=== PATIENT | male | born 1945 | race Caucasian/White ===

== ENCOUNTER 2017-08-05 23:53 | Inpatient (IN) | payer OTHER, BC ==
[~2017-08-05] VITALS: Ht 172.7 cm; Wt 63.3 kg
[~2017-08-05 23:53] MED LIST: AGRYLIN0.5 MG PO; ASPIR 8181 M1 PO; AVELOX400 MG PO; BIOTIN1000 MICRO PO; DECADRON4 MG PO; DEXAMETHASONE4 MG PO; FINASTERIDE5 MG PO; FOLIC ACID0.8 MG PO; HYDREA500 MG PO; METOPROLOL SUCC25 MG PO; NORVASC5 MG PO; OPDIVO100 MG/10 IV; PREDNISONE5 MG PO; PREVACID30 MG PO; TAMSULOSIN HCL0.4 MG PO; VITAMIN B-12500 MC5 SL; VITAMIN B-650 M1 PO
[2017-08-06 01:28] LABS: HEMOGLOBIN 13.1 G/DL (12.5-16.6); MCH 36.3 PG (29.0-34.0); MCHC 33.6 G/DL (30.0-36.0); PLATELET COUNT 396 K/uL (156-360); RBC DIS.WIDTH-CV 16.3 % (11.8-14.6); RBC DIS.WIDTH-SD 65.9 % (39-53); RED BLOOD COUNT 3.61 M/uL (4.00-5.50)
[2017-08-06 01:37] LABS: CHLORIDE 99 mEq/L (99-109); POTASSIUM 4.6 mEq/L (3.7-5.4); SODIUM 135 mEq/L (136-147)
[2017-08-06 01:39] LABS: GLUCOSE 111 mg/dL (70-99)
[2017-08-06 01:42] LABS: CREATININE 1.2 mg/dL (0.6-1.3); GFR ESTIMATE (CALCULATED) > 59 mL/min/ (58.99-99999)
[2017-08-06 01:43] LABS: UREA NITROGEN (BUN) 27 mg/dL (9-23)
[2017-08-06 06:44] VITALS: BP 123/76
[2017-08-06 07:05] LABS: TOTAL BILIRUBIN 0.3 mg/dL (0.0-1.0)
[2017-08-06 07:32] VITALS: BP 120/67
[2017-08-06 07:51] LABS: ALBUMIN 3.9 G/DL (3.2-4.8); ALKALINE PHOSPHATASE 90 IU/L (3-129); ALT (GPT) 21 IU/L (3-49); AST (GOT) 35 IU/L (2-34); DIRECT BILIRUBIN 0.1 mg/dL (0.0-0.3); TOTAL PROTEIN 6.8 G/DL (6.4-8.3)
[2017-08-06 08:51] LABS: THYROTROPIN (TSH) 0.89 MIU/L (0.4-5.5)
[2017-08-06 09:49] LABS: APPEARANCE CLEAR ((CLEAR)); BILIRUBIN NEGATIVE; BLOOD MODERATE; COLOR YELLOW ((YELLOW)); GLUCOSE (STRIP) NEGATIVE; KETONES NEGATIVE; LEUKOCYTES NEGATIVE; NITRITE NEGATIVE; PROTEIN (STRIP) NEGATIVE; SPECIFIC GRAVITY 1.019 (1.000-1.030); UROBILINOGEN 0.2 MG/DL (0.2-1.0)
[2017-08-06 09:55] LABS: BACTERIA NONE SEEN /HPF; EPITHELIAL CELLS NONE SEEN /HPF; HYALINE CASTS 0-5 /LPF; MUCUS TRACE /LPF; RED BLOOD CELLS 0-5 /HPF (0-5); WHITE BLOOD CELLS 0-5 /HPF (0-5)
[2017-08-06] MEDS ORDERED: BACTRIM,SEPT1 TABLET PO (10:32)
[2017-08-06] MEDS ORDERED: ERGOCALCIF50000 UNIT PO (10:33)
[2017-08-06 11:40] VITALS: BP 113/67
[2017-08-06 15:22] VITALS: BP 129/77
[2017-08-06 20:59] VITALS: BP 121/74
[2017-08-07] VITALS (7 sets, daily range): BP systolic 116–132; BP diastolic 56–76
[2017-08-07 05:23] LABS: HEMATOCRIT 31.9 % (38.0-50.0); MCH 36.8 PG (29.0-34.0); MCHC 33.2 G/DL (30.0-36.0); MCV 110.8 FL (86-99); PLATELET COUNT 336 K/uL (156-360); RBC DIS.WIDTH-CV 16.5 % (11.8-14.6); RBC DIS.WIDTH-SD 68.1 % (39-53); WHITE BLOOD COUNT 11.6 K/uL (4.1-10.2)
[2017-08-07 05:24] LABS: HEMOGLOBIN 10.6 G/DL (12.5-16.6); RED BLOOD COUNT 2.88 M/uL (4.00-5.50)
[2017-08-07 05:39] LABS: CHLORIDE 106 MEQ/L (99-109); CREATININE 0.9 MG/DL (0.6-1.3); GFR ESTIMATE (CALCULATED) > 59 mL/min/ (58.99-99999); GLUCOSE 109 mg/dL (70-99); POTASSIUM 4.5 MEQ/L (3.7-5.4); SODIUM 137 MEQ/L (136-147); UREA NITROGEN (BUN) 13 mg/dL (9-23)
[2017-08-08 04:29] VITALS: BP 126/78
[2017-08-08 07:25] VITALS: BP 121/71
[2017-08-08 09:31] LABS: HEMATOCRIT 33.2 % (38.0-50.0); HEMOGLOBIN 10.8 G/DL (12.5-16.6); MCHC 32.5 G/DL (30.0-36.0); MCV 110.7 FL (86-99); PLATELET COUNT 359 K/uL (156-360); RBC DIS.WIDTH-CV 16.1 % (11.8-14.6); RBC DIS.WIDTH-SD 67.3 % (39-53); WHITE BLOOD COUNT 10.6 K/uL (4.1-10.2)
[2017-08-08 11:34] VITALS: BP 108/64
== END 2017-08-08 12:18 | disposition home or self-care (01) | DRG 312 ==
LOC: EME → EDBD 23:53 → EDOF 08-06 04:51 → 3EAST 08-06 04:51 → ENRESERV 08-06 04:57 → 3EAST 08-06 05:49
PROVIDERS: Emergency Medicine Emergency Medical Services; Family Medicine; Physician Assistant
DX: R55 Syncope and collapse (principal); E86.0 Dehydration; R65.10 Systemic inflammatory response syndrome (SIRS) of non-infectious origin without acute organ dysfunction; C44.90 Unspecified malignant neoplasm of skin, unspecified; J44.9 Chronic obstructive pulmonary disease, unspecified; R33.9 Retention of urine, unspecified; M54.5 Low back pain; I10 Essential (primary) hypertension; S09.90XA Unspecified injury of head, initial encounter; W18.2XXA Fall in (into) shower or empty bathtub, initial encounter; Y93.E1 Activity, personal bathing and showering; F17.200 Nicotine dependence, unspecified, uncomplicated; Z85.841 Personal history of malignant neoplasm of brain; Z92.3 Personal history of irradiation; Z92.21 Personal history of antineoplastic chemotherapy; Z85.118 Personal history of other malignant neoplasm of bronchus and lung
CPT/HCPCS: 70450; 71045; 72110; 73522; 80048; 80076; 80202; 81003; 83605; 84443; 85027; 87040; 87086; 93005; 99281; 99285; J1650; J2405; J2543; J3370; J7030; J7050